=== PATIENT | female | born 1995 | race Caucasian/White ===

== ENCOUNTER 2021-02-26 15:30 | Inpatient (IN) | payer MEDICAID ==
[~2021-02-26] VITALS: Ht 165.1 cm; Wt 150.8 kg
[~2021-02-26 15:30] MED LIST: BUPR-93 PO; METF-960 PO; TRAZ-257 PO
[2021-02-26 21:00] VITALS: BP 148/84
[2021-02-26] MEDS ORDERED: HALOPERIDOL 5 MG TABLET PO PRN (21:00)
[2021-02-26] MEDS ORDERED: ZOLPIDEM TARTRATE 10 MG TABLET PO PRN (21:00)
[2021-02-26] MEDS ORDERED: DEXTROSE 50%-WATER 25 GM/50 ML SYRINGE IVP PRN (21:15)
[2021-02-26] MEDS: OLANZapine 5 MG TABLET PO SCH (21:30)
[2021-02-27 05:51] LABS: BASOPHILS % (AUTO) 0.5 % (0.0-2.0); EOSINOPHILS % (AUTO) 2.3 % (1.0-6.0); HEMATOCRIT 42.8 % (36-46); HEMOGLOBIN 14.6 g/dL (12.0-16.0); LYMPHOCYTES # (AUTO) 3.3 K/uL (1.0-4.8); LYMPHOCYTES % (AUTO) 33.3 % (22.0-44.0); MEAN CORPUSCULAR HEMOGLOBIN 30.2 pg (26.0-34.0); MEAN CORPUSCULAR HGB CONC 34.1 G/dL (31.0-37.0); MEAN CORPUSCULAR VOLUME 88 fL (80-100); MONOCYTES # (AUTO) 0.6 K/uL (0.1-1.0); MONOCYTES % (AUTO) 5.5 % (2.0-9.0); NEUTROPHILS # (AUTO) 5.8 K/uL (1.8-7.7); NEUTROPHILS % (AUTO) 58.4 % (40.0-70.0); PLATELET COUNT (AUTO) 262 K/uL (150-450); RED BLOOD CELL COUNT(AUTO) 4.84 MIL/uL (4.00-5.20); RED CELL DISTRIBUTION WIDTH 13.1 % (11.5-14.5)
[2021-02-27 06:22] LABS: ALANINE AMINOTRANSFERASE 32 U/L (12-78); ALBUMIN 2.9 g/dL (3.4-5.0); ALKALINE PHOSPHATASE 71 U/L (46-116); ANION GAP 8 mmol/L (8-16); ASPARTATE AMINOTRANSFERASE 12 U/L (15-37); BILIRUBIN,TOTAL 0.7 mg/dL (0.1-1.0); CALCIUM, TOTAL 8.8 mg/dL (8.8-10.5); CARBON DIOXIDE 27 mmol/L (22-29); CHLORIDE 101 mmol/L (98-107); CREATININE 0.81 mg/dL (0.60-1.30); GLOMERULAR FILTR. RATE CALC > 60 mL/min (>60); GLUCOSE,RANDOM 250 mg/dL (70-110); POTASSIUM 4.1 mmol/L (3.5-5.1); SODIUM SERUM 136 mmol/L (136-145); TOTAL PROTEIN, SERUM 6.1 g/dL (6.4-8.2); UREA NITROGEN, BLOOD 12 mg/dL (7-18)
[2021-02-27] MEDS: INSULIN LISPRO 100 UNITS/ML SQ PRN ×4 (06:39→21:16)
[2021-02-27 08:32] VITALS: BP 119/55
[2021-02-27] MEDS: OLANZapine 5 MG TABLET PO SCH (08:50)
[2021-02-27] MEDS: BuPROPion HCL XL 150 MG ER TABLET PO SCH (08:50)
[2021-02-27 16:15] VITALS: BP 122/85
[2021-02-27 16:38] LABS: GLUCOMETER DEV NAME(LOC) 3E.I 2; GLUCOSE,POINT OF CARE 282 MG/DL (70-110)
[2021-02-27 17:28] LABS: GLUCOMETER DEV NAME(LOC) 3E.I 2; GLUCOSE,POINT OF CARE 192 MG/DL (70-110)
[2021-02-27] MEDS: ACETAMINOPHEN 325 MG TABLET PO PRN (20:36)
[2021-02-27] MEDS: QUEtiapine FUMARATE 25 MG TABLET PO SCH (20:36)
[2021-02-27 20:54] LABS: GLUCOMETER DEV NAME(LOC) 3E.I 2; GLUCOSE,POINT OF CARE 269 MG/DL (70-110)
[2021-02-28 05:33] LABS: GLUCOMETER DEV NAME(LOC) 3E.I 2; GLUCOSE,POINT OF CARE 253 MG/DL (70-110)
[2021-02-28] MEDS: INSULIN LISPRO 100 UNITS/ML SQ PRN ×4 (06:57→21:07)
[2021-02-28] MEDS: BuPROPion HCL XL 150 MG ER TABLET PO SCH (08:19)
[2021-02-28] MEDS: ACETAMINOPHEN 325 MG TABLET PO PRN (08:32)
[2021-02-28 08:35] VITALS: BP 103/57
[2021-02-28 11:20] LABS: GLUCOMETER DEV NAME(LOC) 3EX.; GLUCOSE,POINT OF CARE 274 MG/DL (70-110)
[2021-02-28] MEDS ORDERED: PETROLATUM,WHITE 28 GM JELLY TP PRN (15:00)
[2021-02-28] MEDS ORDERED: ALBUTEROL SULFATE HFA 90 MCG/PUFF 8 GM INHALER IH PRN (15:00)
[2021-02-28] MEDS ORDERED: CloNIDine HCL 0.1 MG TABLET PO PRN (15:00)
[2021-02-28] MEDS ORDERED: DOCUSATE SODIUM 100 MG CAPSULE PO PRN (15:00)
[2021-02-28] MEDS ORDERED: MAG HYDROX/AL HYDROX/SIMETH ES 30 ML SUSPENSION UDCUP PO PRN (15:00)
[2021-02-28] MEDS ORDERED: GuaiFENesin/D-METHORPHAN [SUGAR-FREE] 200-20MG/10 ML SYRUP UDCUP PO PRN (15:00)
[2021-02-28] MEDS ORDERED: ACETAMINOPHEN 325 MG TABLET PO PRN (15:00)
[2021-02-28] MEDS ORDERED: NICOTINE 14 MG/24 HOUR PATCH TD PRN (15:00)
[2021-02-28] MEDS ORDERED: ONDANSETRON HCL 4 MG TABLET PO PRN (15:00)
[2021-02-28] MEDS ORDERED: LOPERAMIDE HCL 2 MG CAPSULE PO PRN (15:00)
[2021-02-28] MEDS ORDERED: MAGNESIUM HYDROXIDE SUSPENSION 30 ML UDCUP PO PRN (15:00)
[2021-02-28 16:00] VITALS: BP 144/96
[2021-02-28] MEDS: LORazepam 2 MG TABLET PO PRN (16:29)
[2021-02-28 17:17] LABS: GLUCOMETER DEV NAME(LOC) 3E.I 2; GLUCOSE,POINT OF CARE 274 MG/DL (70-110)
[2021-02-28] MEDS: QUEtiapine FUMARATE 25 MG TABLET PO SCH (20:20)
[2021-02-28 21:29] LABS: GLUCOMETER DEV NAME(LOC) 3E.I 2; GLUCOSE,POINT OF CARE 393 MG/DL (70-110)
[2021-03-01 05:37] LABS: GLUCOMETER DEV NAME(LOC) 3E.I 2; GLUCOSE,POINT OF CARE 259 MG/DL (70-110)
[2021-03-01] MEDS: INSULIN LISPRO 100 UNITS/ML SQ PRN ×4 (07:00→21:32)
[2021-03-01] MEDS: BuPROPion HCL XL 150 MG ER TABLET PO SCH (08:23)
[2021-03-01 08:54] VITALS: BP 101/56
[2021-03-01 11:40] LABS: GLUCOMETER DEV NAME(LOC) 3EX.; GLUCOSE,POINT OF CARE 274 MG/DL (70-110)
[2021-03-01] MEDS: ARIPiprazole 5 MG TABLET PO SCH (12:52)
[2021-03-01 16:00] VITALS: BP 130/82
[2021-03-01 17:42] LABS: GLUCOMETER DEV NAME(LOC) 3EX.; GLUCOSE,POINT OF CARE 278 MG/DL (70-110)
[2021-03-01 21:10] LABS: GLUCOMETER DEV NAME(LOC) 3EX.; GLUCOSE,POINT OF CARE 282 MG/DL (70-110)
[2021-03-01] MEDS: QUEtiapine FUMARATE 25 MG TABLET PO SCH (21:31)
[2021-03-02 05:50] LABS: GLUCOMETER DEV NAME(LOC) 3E.I 2; GLUCOSE,POINT OF CARE 300 MG/DL (70-110)
[2021-03-02] MEDS: INSULIN LISPRO 100 UNITS/ML SQ PRN ×4 (06:52→21:04)
[2021-03-02] MEDS: BuPROPion HCL XL 150 MG ER TABLET PO SCH (08:08)
[2021-03-02] MEDS: ARIPiprazole 5 MG TABLET PO SCH (08:08)
[2021-03-02 11:24] LABS: GLUCOMETER DEV NAME(LOC) 3EX.; GLUCOSE,POINT OF CARE 284 MG/DL (70-110)
[2021-03-02] MEDS: IBUPROFEN 400 MG TABLET PO PRN (12:17)
[2021-03-02 16:49] LABS: GLUCOMETER DEV NAME(LOC) 3E.I 2; GLUCOSE,POINT OF CARE 251 MG/DL (70-110)
[2021-03-02 17:00] VITALS: BP 122/79
[2021-03-02] MEDS: QUEtiapine FUMARATE 25 MG TABLET PO SCH (20:19)
[2021-03-02 20:29] LABS: GLUCOMETER DEV NAME(LOC) 3E.I 2; GLUCOSE,POINT OF CARE 327 MG/DL (70-110)
[2021-03-03 05:42] LABS: GLUCOMETER DEV NAME(LOC) 3E.I 2; GLUCOSE,POINT OF CARE 289 MG/DL (70-110)
[2021-03-03] MEDS: INSULIN LISPRO 100 UNITS/ML SQ PRN ×4 (06:43→21:07)
[2021-03-03] MEDS: ARIPiprazole 5 MG TABLET PO SCH (09:31)
[2021-03-03] MEDS: BuPROPion HCL XL 150 MG ER TABLET PO SCH (09:31)
[2021-03-03 11:57] LABS: GLUCOMETER DEV NAME(LOC) 3EX.; GLUCOSE,POINT OF CARE 334 MG/DL (70-110)
[2021-03-03 16:24] VITALS: BP 137/94
[2021-03-03 18:26] LABS: GLUCOMETER DEV NAME(LOC) 3E.I 2; GLUCOSE,POINT OF CARE 285 MG/DL (70-110)
[2021-03-03] MEDS: LORazepam 2 MG TABLET PO PRN (18:56)
[2021-03-03] MEDS: QUEtiapine FUMARATE 25 MG TABLET PO SCH (20:31)
[2021-03-03 21:12] LABS: GLUCOMETER DEV NAME(LOC) 3E.I 2; GLUCOSE,POINT OF CARE 305 MG/DL (70-110)
[2021-03-04 05:36] LABS: GLUCOMETER DEV NAME(LOC) 3E.I 2; GLUCOSE,POINT OF CARE 251 MG/DL (70-110)
[2021-03-04] MEDS: INSULIN LISPRO 100 UNITS/ML SQ PRN ×4 (06:40→21:10)
[2021-03-04] MEDS: ARIPiprazole 5 MG TABLET PO SCH (08:34)
[2021-03-04] MEDS: BuPROPion HCL XL 150 MG ER TABLET PO SCH (08:34)
[2021-03-04] MEDS: IBUPROFEN 400 MG TABLET PO PRN (08:51)
[2021-03-04 09:50] VITALS: BP_SYST 125; BP_SYST 130; BP_DIAS 65; BP_DIAS 73
[2021-03-04 11:30] LABS: GLUCOMETER DEV NAME(LOC) 3E.I 2; GLUCOSE,POINT OF CARE 243 MG/DL (70-110)
[2021-03-04 14:50] LABS: COVID AG,FIA SOURCE NASOPHARYNGEAL
[2021-03-04 16:06] VITALS: BP 138/83
[2021-03-04] MEDS: LORazepam 2 MG TABLET PO PRN ×2 (16:25→21:48)
[2021-03-04 17:04] LABS: GLUCOMETER DEV NAME(LOC) 3EX.; GLUCOSE,POINT OF CARE 255 MG/DL (70-110)
[2021-03-04 17:23] VITALS: BP 128/70
[2021-03-04] MEDS: QUEtiapine FUMARATE 25 MG TABLET PO SCH (20:51)
[2021-03-04 21:09] LABS: GLUCOMETER DEV NAME(LOC) 3EX.; GLUCOSE,POINT OF CARE 286 MG/DL (70-110)
[2021-03-04 21:51] VITALS: BP 155/87
[2021-03-05 05:45] LABS: GLUCOMETER DEV NAME(LOC) 3E.I 2; GLUCOSE,POINT OF CARE 256 MG/DL (70-110)
[2021-03-05] MEDS: INSULIN LISPRO 100 UNITS/ML SQ PRN ×2 (06:35→11:26)
[2021-03-05 08:00] VITALS: BP 144/87
[2021-03-05] MEDS: BuPROPion HCL XL 150 MG ER TABLET PO SCH (08:36)
[2021-03-05] MEDS: ARIPiprazole 5 MG TABLET PO SCH (08:36)
[2021-03-05 11:29] LABS: GLUCOMETER DEV NAME(LOC) 3EX.; GLUCOSE,POINT OF CARE 307 MG/DL (70-110)
[2021-03-05] MEDS ORDERED: ARIP5TAB37 PO (11:52)
[2021-03-05] MEDS ORDERED: QUET25TA PO (11:52)
== END 2021-03-05 13:00 | disposition home or self-care (01) | DRG 751 ==
LOC: 3EI 20:30
PROVIDERS: ADMIT Psychiatry & Neurology Child & Adolescent Psychiatry; ATTEND Psychiatry & Neurology Child & Adolescent Psychiatry
DX: F33.2 Major depressive disorder, recurrent severe without psychotic features (principal); R45.851 Suicidal ideations; Z68.43 Body mass index [BMI] 50.0-59.9, adult; E11.9 Type 2 diabetes mellitus without complications; E66.9 Obesity, unspecified; F12.90 Cannabis use, unspecified, uncomplicated; Z20.822 Contact with and (suspected) exposure to COVID-19; K21.9 Gastro-esophageal reflux disease without esophagitis; Z59.0 Homelessness; Z79.899 Other long term (current) drug therapy; F41.9 Anxiety disorder, unspecified
CPT/HCPCS: 80053; 82962; 85025; 87426

== ENCOUNTER 2021-03-07 11:26 | Inpatient (IN) | payer MEDICAID ==
[~2021-03-07] VITALS: Ht 165.1 cm; Wt 149.8 kg
[~2021-03-07 11:26] MED LIST changes: +ARIP5TAB37 PO; -METF-960 PO; +QUET25TA PO; -TRAZ-257 PO
[2021-03-07 11:42] LABS: GLUCOSE,POINT OF CARE 366 MG/DL (70-110)
[2021-03-07 12:56] LABS: AMPHET/METH SCREEN,URINE NEGATIVE (NEGATIVE); BARBITURATE SCREEN, URINE NEGATIVE (NEGATIVE); BENZODIAZEPINES SCREEN,URINE NEGATIVE (NEGATIVE); CANNABINOID SCREEN,URINE NEGATIVE (NEGATIVE); COCAINE SCREEN,URINE NEGATIVE (NEGATIVE); METHADONE SCREEN, URINE NEGATIVE (NEGATIVE); OPIATE SCREEN,URINE NEGATIVE (NEGATIVE)
[2021-03-07 12:59] LABS: PHENCYCLIDINE SCREEN,URINE NEGATIVE (NEGATIVE)
[2021-03-07 13:03] LABS: ANION GAP 11 mmol/L (8-16); CARBON DIOXIDE 25 mmol/L (22-29); CHLORIDE 101 mmol/L (98-107); CREATININE 0.94 mg/dL (0.60-1.30); GLOMERULAR FILTR. RATE CALC > 60 mL/min (>60); GLUCOSE,RANDOM 369 mg/dL (70-110); POTASSIUM 4.2 mmol/L (3.5-5.1); SODIUM SERUM 137 mmol/L (136-145); UREA NITROGEN, BLOOD 9 mg/dL (7-18)
[2021-03-07 13:14] LABS: ALANINE AMINOTRANSFERASE 44 U/L (12-78); ALBUMIN 3.3 g/dL (3.4-5.0); ALKALINE PHOSPHATASE 81 U/L (46-116); ASPARTATE AMINOTRANSFERASE 17 U/L (15-37); BILIRUBIN,TOTAL 0.7 mg/dL (0.1-1.0); HCG,QUANTITATIVE < 1 mIU/mL (0-6); TOTAL PROTEIN, SERUM 7.3 g/dL (6.4-8.2)
[2021-03-07 13:18] LABS: BASOPHILS % (AUTO) 0.4 % (0.0-2.0); EOSINOPHILS % (AUTO) 1.1 % (1.0-6.0); LYMPHOCYTES # (AUTO) 2.9 K/uL (1.0-4.8); LYMPHOCYTES % (AUTO) 28.8 % (22.0-44.0); MEAN CORPUSCULAR HEMOGLOBIN 29.5 pg (26.0-34.0); MEAN CORPUSCULAR HGB CONC 33.3 G/dL (31.0-37.0); MEAN CORPUSCULAR VOLUME 88 fL (80-100); MONOCYTES # (AUTO) 0.6 K/uL (0.1-1.0); MONOCYTES % (AUTO) 5.6 % (2.0-9.0); NEUTROPHILS # (AUTO) 6.4 K/uL (1.8-7.7); NEUTROPHILS % (AUTO) 64.1 % (40.0-70.0); PLATELET COUNT (AUTO) 351 K/uL (150-450); RED CELL DISTRIBUTION WIDTH 13.4 % (11.5-14.5)
[2021-03-07 14:53] LABS: COVID AG,FIA SOURCE NASAL SWAB
[2021-03-07 17:00] LABS: GLUCOSE,POINT OF CARE 284 MG/DL (70-110)
[2021-03-07] MEDS ORDERED: DEXTROSE 50%-WATER 25 GM/50 ML SYRINGE IVP PRN (18:00)
[2021-03-07] MEDS ORDERED: ZOLPIDEM TARTRATE 10 MG TABLET PO PRN (18:00)
[2021-03-07] MEDS: LORazepam 2 MG TABLET PO PRN (20:11)
[2021-03-07] MEDS: QUEtiapine FUMARATE 25 MG TABLET PO SCH (20:11)
[2021-03-07] MEDS: INSULIN LISPRO 100 UNITS/ML SQ PRN (20:36)
[2021-03-07 20:38] LABS: GLUCOMETER DEV NAME(LOC) 3E.I 2; GLUCOSE,POINT OF CARE 313 MG/DL (70-110)
[2021-03-08 00:21] LABS: APPEARANCE,URINE CLEAR (CLEAR); BILIRUBIN,URINE NEGATIVE (NEGATIVE); GLUCOSE, URINE (UA) >=1000 mg/dL (NEGATIVE); KETONES,URINE NEGATIVE (NEGATIVE); LEUKOCYTE ESTERASE ,URINE NEGATIVE (NEGATIVE); NITRATE,URINE NEGATIVE (NEGATIVE); OCCULT BLOOD,URINE NEGATIVE (NEGATIVE); PH,URINE 5.5 (5.0-8.0); PROTEIN,URINE TRACE (NEGATIVE); UROBILINOGEN,URINE 0.2 mg/dL (<=1.0)
[2021-03-08 00:30] LABS: BACTERIA,URINE None Seen /HPF (None Seen); RBC,URINE 0-2 /HPF (0-2); SQUAMOUS EPITHELIAL CELL,UR Few /LPF (None Seen); WBC,URINE 0-2 /HPF (0-5)
[2021-03-08 06:04] LABS: GLUCOMETER DEV NAME(LOC) 3E.I 2; GLUCOSE,POINT OF CARE 244 MG/DL (70-110)
[2021-03-08 06:22] LABS: BASOPHILS % (AUTO) 0.5 % (0.0-2.0); EOSINOPHILS % (AUTO) 2.6 % (1.0-6.0); HEMATOCRIT 41.5 % (36-46); LYMPHOCYTES # (AUTO) 3.7 K/uL (1.0-4.8); LYMPHOCYTES % (AUTO) 39.3 % (22.0-44.0); MEAN CORPUSCULAR HEMOGLOBIN 29.9 pg (26.0-34.0); MEAN CORPUSCULAR HGB CONC 33.8 G/dL (31.0-37.0); MEAN CORPUSCULAR VOLUME 89 fL (80-100); MONOCYTES # (AUTO) 0.6 K/uL (0.1-1.0); MONOCYTES % (AUTO) 6.7 % (2.0-9.0); NEUTROPHILS # (AUTO) 4.9 K/uL (1.8-7.7); NEUTROPHILS % (AUTO) 50.9 % (40.0-70.0); PLATELET COUNT (AUTO) 300 K/uL (150-450); RED BLOOD CELL COUNT(AUTO) 4.69 MIL/uL (4.00-5.20)
[2021-03-08 06:45] LABS: ALANINE AMINOTRANSFERASE 35 U/L (12-78); ALBUMIN 2.8 g/dL (3.4-5.0); ALKALINE PHOSPHATASE 68 U/L (46-116); ANION GAP 9 mmol/L (8-16); ASPARTATE AMINOTRANSFERASE 14 U/L (15-37); BILIRUBIN,TOTAL 0.9 mg/dL (0.1-1.0); CALCIUM, TOTAL 8.6 mg/dL (8.8-10.5); CARBON DIOXIDE 26 mmol/L (22-29); CHLORIDE 101 mmol/L (98-107); CREATININE 0.72 mg/dL (0.60-1.30); FREE T4 (FREE THYROXINE) 1.27 ng/dL (0.76-1.46); GLOMERULAR FILTR. RATE CALC > 60 mL/min (>60); GLUCOSE,RANDOM 264 mg/dL (70-110); HCG,QUANTITATIVE < 1 mIU/mL (0-6); POTASSIUM 3.8 mmol/L (3.5-5.1); SODIUM SERUM 136 mmol/L (136-145); THYROID STIMULATING HORMONE 1.31 uIU/mL (0.36-3.74); TOTAL PROTEIN, SERUM 6.3 g/dL (6.4-8.2); UREA NITROGEN, BLOOD 13 mg/dL (7-18)
[2021-03-08] MEDS: INSULIN LISPRO 100 UNITS/ML SQ PRN ×4 (07:01→21:39)
[2021-03-08] MEDS: ARIPiprazole 5 MG TABLET PO SCH (08:37)
[2021-03-08] MEDS: BuPROPion HCL XL 150 MG ER TABLET PO SCH (08:37)
[2021-03-08 11:31] LABS: GLUCOMETER DEV NAME(LOC) 3E.I 2; GLUCOSE,POINT OF CARE 276 MG/DL (70-110)
[2021-03-08 17:47] LABS: GLUCOMETER DEV NAME(LOC) 3E.I 2; GLUCOSE,POINT OF CARE 268 MG/DL (70-110)
[2021-03-08 18:00] VITALS: BP 129/79
[2021-03-08 19:40] LABS: GLUCOMETER DEV NAME(LOC) 3E.I 2; GLUCOSE,POINT OF CARE 317 MG/DL (70-110)
[2021-03-08] MEDS: QUEtiapine FUMARATE 25 MG TABLET PO SCH (20:11)
[2021-03-09 05:37] LABS: GLUCOMETER DEV NAME(LOC) 3E.I 2; GLUCOSE,POINT OF CARE 284 MG/DL (70-110)
[2021-03-09 06:25] VITALS: BP 117/79
[2021-03-09] MEDS: INSULIN LISPRO 100 UNITS/ML SQ PRN ×3 (06:34→21:13)
[2021-03-09] MEDS: ARIPiprazole 5 MG TABLET PO SCH (08:55)
[2021-03-09] MEDS: BuPROPion HCL XL 150 MG ER TABLET PO SCH (08:55)
[2021-03-09 11:24] LABS: GLUCOMETER DEV NAME(LOC) 3E.I 2; GLUCOSE,POINT OF CARE 287 MG/DL (70-110)
[2021-03-09 12:36] VITALS: BP 122/78
[2021-03-09] MEDS ORDERED: MAG HYDROX/AL HYDROX/SIMETH ES 30 ML SUSPENSION UDCUP PO PRN (14:45)
[2021-03-09] MEDS ORDERED: PETROLATUM,WHITE 28 GM JELLY TP PRN (14:45)
[2021-03-09] MEDS ORDERED: ACETAMINOPHEN 325 MG TABLET PO PRN (14:45)
[2021-03-09] MEDS ORDERED: ONDANSETRON HCL 4 MG TABLET PO PRN (14:45)
[2021-03-09] MEDS ORDERED: LOPERAMIDE HCL 2 MG CAPSULE PO PRN (14:45)
[2021-03-09] MEDS ORDERED: NICOTINE 14 MG/24 HOUR PATCH TD PRN (14:45)
[2021-03-09] MEDS ORDERED: DOCUSATE SODIUM 100 MG CAPSULE PO PRN (14:45)
[2021-03-09] MEDS ORDERED: CloNIDine HCL 0.1 MG TABLET PO PRN (14:45)
[2021-03-09] MEDS ORDERED: GuaiFENesin/D-METHORPHAN [SUGAR-FREE] 200-20MG/10 ML SYRUP UDCUP PO PRN (14:45)
[2021-03-09] MEDS ORDERED: ALBUTEROL SULFATE HFA 90 MCG/PUFF 8 GM INHALER IH PRN (14:45)
[2021-03-09 14:57] VITALS: BP 119/58
[2021-03-09] MEDS: IBUPROFEN 400 MG TABLET PO PRN (14:57)
[2021-03-09 16:04] VITALS: BP 126/78
[2021-03-09 17:09] LABS: GLUCOMETER DEV NAME(LOC) 3E.I 2; GLUCOSE,POINT OF CARE 254 MG/DL (70-110)
[2021-03-09 18:30] VITALS: BP 142/92
[2021-03-09] MEDS: LORazepam 2 MG TABLET PO PRN (18:36)
[2021-03-09] MEDS: QUEtiapine FUMARATE 25 MG TABLET PO SCH (20:11)
[2021-03-09 21:00] LABS: GLUCOMETER DEV NAME(LOC) 3E.I 2; GLUCOSE,POINT OF CARE 267 MG/DL (70-110)
[2021-03-10 05:25] LABS: GLUCOMETER DEV NAME(LOC) 3E.I 2; GLUCOSE,POINT OF CARE 287 MG/DL (70-110)
[2021-03-10] MEDS: INSULIN LISPRO 100 UNITS/ML SQ PRN ×4 (06:59→21:19)
[2021-03-10 07:35] LABS: BASOPHILS % (AUTO) 0.5 % (0.0-2.0); EOSINOPHILS % (AUTO) 1.8 % (1.0-6.0); HEMATOCRIT 42.1 % (36-46); HEMOGLOBIN 14.5 g/dL (12.0-16.0); LYMPHOCYTES # (AUTO) 3.1 K/uL (1.0-4.8); LYMPHOCYTES % (AUTO) 30.9 % (22.0-44.0); MEAN CORPUSCULAR HEMOGLOBIN 30.3 pg (26.0-34.0); MEAN CORPUSCULAR HGB CONC 34.5 G/dL (31.0-37.0); MEAN CORPUSCULAR VOLUME 88 fL (80-100); MONOCYTES # (AUTO) 0.7 K/uL (0.1-1.0); MONOCYTES % (AUTO) 6.5 % (2.0-9.0); NEUTROPHILS # (AUTO) 6.1 K/uL (1.8-7.7); NEUTROPHILS % (AUTO) 60.3 % (40.0-70.0); PLATELET COUNT (AUTO) 313 K/uL (150-450); RED BLOOD CELL COUNT(AUTO) 4.79 MIL/uL (4.00-5.20); RED CELL DISTRIBUTION WIDTH 12.7 % (11.5-14.5)
[2021-03-10 07:45] LABS: HEMOGLOBIN A1C 10.5 % (3.8-5.6)
[2021-03-10 07:57] LABS: ALANINE AMINOTRANSFERASE 32 U/L (12-78); ALBUMIN 2.9 g/dL (3.4-5.0); ALKALINE PHOSPHATASE 73 U/L (46-116); ANION GAP 9 mmol/L (8-16); ASPARTATE AMINOTRANSFERASE 11 U/L (15-37); BILIRUBIN,TOTAL 0.5 mg/dL (0.1-1.0); CALCIUM, TOTAL 8.7 mg/dL (8.8-10.5); CARBON DIOXIDE 27 mmol/L (22-29); CHLORIDE 100 mmol/L (98-107); CREATININE 0.66 mg/dL (0.60-1.30); GLOMERULAR FILTR. RATE CALC > 60 mL/min (>60); GLUCOSE,RANDOM 268 mg/dL (70-110); POTASSIUM 4.2 mmol/L (3.5-5.1); SODIUM SERUM 136 mmol/L (136-145); THYROID STIMULATING HORMONE 1.92 uIU/mL (0.36-3.74); TOTAL PROTEIN, SERUM 6.5 g/dL (6.4-8.2); UREA NITROGEN, BLOOD 14 mg/dL (7-18)
[2021-03-10] MEDS: ARIPiprazole 5 MG TABLET PO SCH (08:49)
[2021-03-10] MEDS: BuPROPion HCL XL 150 MG ER TABLET PO SCH (08:49)
[2021-03-10] MEDS: LORazepam 2 MG TABLET PO PRN ×3 (11:04→20:42)
[2021-03-10 11:26] LABS: GLUCOMETER DEV NAME(LOC) 3E.I 2; GLUCOSE,POINT OF CARE 287 MG/DL (70-110)
[2021-03-10 16:24] VITALS: BP 128/76
[2021-03-10 16:31] LABS: GLUCOMETER DEV NAME(LOC) 3E.I 2; GLUCOSE,POINT OF CARE 333 MG/DL (70-110)
[2021-03-10 16:43] LABS: CHOL/HDL RATIO 6.5 (3.9-5.7); CHOLESTEROL 169 mg/dL (131-200); HDL CHOLESTEROL 26 mg/dL (40-60); LDL CHOL (CALC.) 111 mg/dL (0-130); TRIGLYCERIDES 161 mg/dL (15-150)
[2021-03-10] MEDS: QUEtiapine FUMARATE 25 MG TABLET PO SCH (20:12)
[2021-03-10 20:14] VITALS: BP 136/88
[2021-03-10 20:57] VITALS: BP 143/71
[2021-03-10] MEDS: IBUPROFEN 400 MG TABLET PO PRN (20:57)
[2021-03-10 21:11] LABS: GLUCOMETER DEV NAME(LOC) 3E.I 2; GLUCOSE,POINT OF CARE 336 MG/DL (70-110)
[2021-03-10 21:14] VITALS: BP 139/89
[2021-03-10 21:30] VITALS: BP 106/57
[2021-03-10 21:57] VITALS: BP 132/96
[2021-03-11 05:30] LABS: GLUCOMETER DEV NAME(LOC) 3E.I 2; GLUCOSE,POINT OF CARE 277 MG/DL (70-110)
[2021-03-11] MEDS: INSULIN LISPRO 100 UNITS/ML SQ PRN ×4 (06:42→21:57)
[2021-03-11] MEDS: ARIPiprazole 5 MG TABLET PO SCH (08:51)
[2021-03-11] MEDS: BuPROPion HCL XL 150 MG ER TABLET PO SCH (08:51)
[2021-03-11 11:23] LABS: GLUCOMETER DEV NAME(LOC) 3E.I 2; GLUCOSE,POINT OF CARE 304 MG/DL (70-110)
[2021-03-11 12:36] VITALS: BP 155/90
[2021-03-11] MEDS: LORazepam 2 MG TABLET PO PRN (14:48)
[2021-03-11] MEDS: HALOPERIDOL 5 MG TABLET PO PRN (14:48)
[2021-03-11 16:04] VITALS: BP 115/75
[2021-03-11 17:08] LABS: GLUCOMETER DEV NAME(LOC) 3E.I 2; GLUCOSE,POINT OF CARE 312 MG/DL (70-110)
[2021-03-11] MEDS: QUEtiapine FUMARATE 25 MG TABLET PO SCH (20:20)
[2021-03-11 21:34] LABS: GLUCOMETER DEV NAME(LOC) 3E.I 2; GLUCOSE,POINT OF CARE 342 MG/DL (70-110)
[2021-03-12 05:31] LABS: GLUCOMETER DEV NAME(LOC) 3E.I 2; GLUCOSE,POINT OF CARE 260 MG/DL (70-110)
[2021-03-12] MEDS: INSULIN LISPRO 100 UNITS/ML SQ PRN ×4 (06:44→20:53)
[2021-03-12] MEDS: BuPROPion HCL XL 150 MG ER TABLET PO SCH (08:06)
[2021-03-12] MEDS: ARIPiprazole 5 MG TABLET PO SCH (08:06)
[2021-03-12 12:06] LABS: GLUCOMETER DEV NAME(LOC) 3E.I 2; GLUCOSE,POINT OF CARE 262 MG/DL (70-110)
[2021-03-12] MEDS: LORazepam 2 MG TABLET PO PRN ×2 (13:20→19:24)
[2021-03-12 16:40] VITALS: BP 110/70
[2021-03-12] MEDS: IBUPROFEN 400 MG TABLET PO PRN (16:56)
[2021-03-12 18:07] LABS: GLUCOMETER DEV NAME(LOC) 3E.C; GLUCOSE,POINT OF CARE 266 MG/DL (70-110)
[2021-03-12] MEDS: QUEtiapine FUMARATE 25 MG TABLET PO SCH (20:07)
[2021-03-12 20:35] LABS: GLUCOMETER DEV NAME(LOC) 3E.C; GLUCOSE,POINT OF CARE 285 MG/DL (70-110)
[2021-03-13] MEDS: INSULIN LISPRO 100 UNITS/ML SQ PRN ×4 (06:42→20:54)
[2021-03-13 06:44] LABS: GLUCOMETER DEV NAME(LOC) 3E.C; GLUCOSE,POINT OF CARE 264 MG/DL (70-110)
[2021-03-13 08:47] VITALS: BP 133/78
[2021-03-13] MEDS: ARIPiprazole 5 MG TABLET PO SCH (09:43)
[2021-03-13] MEDS: HALOPERIDOL 5 MG TABLET PO PRN (09:43)
[2021-03-13] MEDS: LORazepam 2 MG TABLET PO PRN ×2 (09:43→20:42)
[2021-03-13] MEDS: BuPROPion HCL XL 150 MG ER TABLET PO SCH (09:43)
[2021-03-13] MEDS: NALTREXONE HCL 50 MG TABLET PO SCH (11:20)
[2021-03-13 12:06] LABS: GLUCOMETER DEV NAME(LOC) 3E.C; GLUCOSE,POINT OF CARE 293 MG/DL (70-110)
[2021-03-13 16:17] VITALS: BP 138/81
[2021-03-13 18:29] LABS: GLUCOMETER DEV NAME(LOC) 3E.C; GLUCOSE,POINT OF CARE 274 MG/DL (70-110)
[2021-03-13] MEDS: QUEtiapine FUMARATE 25 MG TABLET PO SCH (20:42)
[2021-03-13 20:57] LABS: GLUCOMETER DEV NAME(LOC) 3E.C; GLUCOSE,POINT OF CARE 295 MG/DL (70-110)
[2021-03-14] MEDS: INSULIN LISPRO 100 UNITS/ML SQ PRN ×3 (06:54→22:14)
[2021-03-14 07:10] LABS: GLUCOMETER DEV NAME(LOC) 3E.C; GLUCOSE,POINT OF CARE 232 MG/DL (70-110)
[2021-03-14] MEDS: ARIPiprazole 5 MG TABLET PO SCH (08:31)
[2021-03-14] MEDS: BuPROPion HCL XL 150 MG ER TABLET PO SCH (08:31)
[2021-03-14] MEDS: NALTREXONE HCL 50 MG TABLET PO SCH (08:31)
[2021-03-14 11:16] LABS: GLUCOMETER DEV NAME(LOC) 3E.C; GLUCOSE,POINT OF CARE 223 MG/DL (70-110)
[2021-03-14 16:13] VITALS: BP 132/78
[2021-03-14 16:42] LABS: GLUCOMETER DEV NAME(LOC) 3E.I 2; GLUCOSE,POINT OF CARE 269 MG/DL (70-110)
[2021-03-14] MEDS: LORazepam 2 MG TABLET PO PRN ×2 (16:48→21:02)
[2021-03-14] MEDS: QUEtiapine FUMARATE 25 MG TABLET PO SCH (20:51)
[2021-03-14 21:03] LABS: GLUCOMETER DEV NAME(LOC) 3EX.; GLUCOSE,POINT OF CARE 291 MG/DL (70-110)
[2021-03-14] MEDS ORDERED: HALOPERIDOL LACTATE 5 MG/ML VIAL ONE (21:23)
[2021-03-14] MEDS ORDERED: LORazepam 2 MG/ML VIAL ONE (21:23)
[2021-03-14] MEDS ORDERED: DiphenhydrAMINE HCL 50 MG/ML VIAL ONE (21:24)
[2021-03-14] MEDS ORDERED: DiphenhydrAMINE HCL 50 MG/ML VIAL IM ONE (21:30)
[2021-03-14] MEDS ORDERED: HALOPERIDOL LACTATE 5 MG/ML VIAL IM ONE (21:30)
[2021-03-14] MEDS ORDERED: LORazepam 2 MG/ML VIAL IM ONE (21:30)
[2021-03-15 06:59] LABS: GLUCOMETER DEV NAME(LOC) 3E.C; GLUCOSE,POINT OF CARE 197 MG/DL (70-110)
[2021-03-15] MEDS: INSULIN LISPRO 100 UNITS/ML SQ PRN ×4 (07:04→21:12)
[2021-03-15] MEDS: ARIPiprazole 5 MG TABLET PO SCH (09:28)
[2021-03-15] MEDS: BuPROPion HCL XL 150 MG ER TABLET PO SCH (09:28)
[2021-03-15] MEDS: NALTREXONE HCL 50 MG TABLET PO SCH (09:28)
[2021-03-15 09:51] VITALS: BP 96/53
[2021-03-15 12:59] LABS: GLUCOMETER DEV NAME(LOC) 3E.C; GLUCOSE,POINT OF CARE 250 MG/DL (70-110)
[2021-03-15] MEDS ORDERED: HALOPERIDOL LACTATE 5 MG/ML VIAL ONE ×2 (14:25→14:27)
[2021-03-15] MEDS ORDERED: DiphenhydrAMINE HCL 50 MG/ML VIAL ONE ×2 (14:25→14:27)
[2021-03-15] MEDS ORDERED: HALOPERIDOL LACTATE 5 MG/ML VIAL IM ONE (14:30)
[2021-03-15] MEDS ORDERED: DiphenhydrAMINE HCL 50 MG/ML VIAL IM ONE (14:30)
[2021-03-15] MEDS ORDERED: LORazepam 2 MG/ML VIAL IM ONE (14:30)
[2021-03-15 16:11] VITALS: BP 126/81
[2021-03-15 18:36] LABS: GLUCOMETER DEV NAME(LOC) 3E.C; GLUCOSE,POINT OF CARE 229 MG/DL (70-110)
[2021-03-15] MEDS: QUEtiapine FUMARATE 25 MG TABLET PO SCH (21:07)
[2021-03-15 21:26] LABS: GLUCOMETER DEV NAME(LOC) 3E.C; GLUCOSE,POINT OF CARE 179 MG/DL (70-110)
[2021-03-16] MEDS: INSULIN LISPRO 100 UNITS/ML SQ PRN ×4 (06:58→20:54)
[2021-03-16 07:01] LABS: GLUCOMETER DEV NAME(LOC) 3E.C; GLUCOSE,POINT OF CARE 167 MG/DL (70-110)
[2021-03-16] MEDS: NALTREXONE HCL 50 MG TABLET PO SCH (08:47)
[2021-03-16] MEDS: BuPROPion HCL XL 150 MG ER TABLET PO SCH (08:47)
[2021-03-16] MEDS: ARIPiprazole 5 MG TABLET PO SCH (08:48)
[2021-03-16 11:24] LABS: GLUCOMETER DEV NAME(LOC) 3E.C; GLUCOSE,POINT OF CARE 217 MG/DL (70-110)
[2021-03-16 16:35] VITALS: BP 112/60
[2021-03-16 16:59] LABS: GLUCOMETER DEV NAME(LOC) 3E.C; GLUCOSE,POINT OF CARE 246 MG/DL (70-110)
[2021-03-16] MEDS: LORazepam 2 MG TABLET PO PRN (19:10)
[2021-03-16] MEDS: HALOPERIDOL 5 MG TABLET PO PRN (19:10)
[2021-03-16] MEDS: QUEtiapine FUMARATE 25 MG TABLET PO SCH (20:40)
[2021-03-16 21:10] LABS: GLUCOMETER DEV NAME(LOC) 3E.C; GLUCOSE,POINT OF CARE 228 MG/DL (70-110)
[2021-03-17] MEDS: INSULIN LISPRO 100 UNITS/ML SQ PRN ×3 (06:46→12:06)
[2021-03-17 06:56] LABS: GLUCOMETER DEV NAME(LOC) 3E.C; GLUCOSE,POINT OF CARE 189 MG/DL (70-110)
[2021-03-17 08:00] VITALS: BP 129/80
[2021-03-17] MEDS: BuPROPion HCL XL 150 MG ER TABLET PO SCH (10:15)
[2021-03-17] MEDS: ARIPiprazole 5 MG TABLET PO SCH (10:15)
[2021-03-17] MEDS: NALTREXONE HCL 50 MG TABLET PO SCH (10:15)
[2021-03-17] MEDS ORDERED: NALT50TA6 PO (11:35)
[2021-03-17 11:51] LABS: GLUCOMETER DEV NAME(LOC) 3E.C; GLUCOSE,POINT OF CARE 260 MG/DL (70-110)
== END 2021-03-17 13:25 | disposition home or self-care (01) | DRG 751 ==
LOC: EMS 11:31 → 3EI 14:56 → UNDOADMIN 14:56 → B2S 14:56 → 3EI 03-10 19:00 → 3EC 03-12 16:00 → 3EI 03-14 14:00 → 3EC 03-14 21:15
PROVIDERS: ADMIT Psychiatry & Neurology Child & Adolescent Psychiatry; ATTEND Psychiatry & Neurology Child & Adolescent Psychiatry
DX: F33.2 Major depressive disorder, recurrent severe without psychotic features (principal); R45.851 Suicidal ideations; E11.9 Type 2 diabetes mellitus without complications; Z87.442 Personal history of urinary calculi; E66.9 Obesity, unspecified; Z20.822 Contact with and (suspected) exposure to COVID-19
CPT/HCPCS: 80053; 80061; 81001; 82962; 83036; 84436; 84439; 84443; 84484; 84702; 85025; 87081; 87426; 93005; 99285; G0480; J1200; J1630; J2060

== ENCOUNTER 2023-03-26 12:47 | Inpatient (IN) | payer MEDICAID ==
[~2023-03-26] VITALS: Ht 170.2 cm; Wt 135.6 kg
[~2023-03-26 12:47] MED LIST changes: +NALT50TA6 PO
[2023-03-28 01:42] VITALS: BP 135/87
[2023-03-28] MEDS ORDERED: ZOLPIDEM TARTRATE 10 MG TABLET PO PRN (02:15)
[2023-03-28] MEDS ORDERED: LORazepam 2 MG TABLET PO PRN (02:15)
[2023-03-28] MEDS ORDERED: HALOPERIDOL 5 MG TABLET PO PRN (02:15)
[2023-03-28] MEDS ORDERED: ONDANSETRON HCL 4 MG TABLET PO ONE (06:30)
[2023-03-28] MEDS ORDERED: ONDANSETRON HCL 4 MG TABLET PO PRN (06:45)
[2023-03-28 07:17] LABS: GLUCOMETER DEV NAME(LOC) 3E.C; GLUCOSE,POINT OF CARE 184 MG/DL (70-110)
[2023-03-28 07:21] LABS: BASOPHILS % (AUTO) 0.7 % (0.0-2.0); HEMATOCRIT 43.9 % (36-46); HEMOGLOBIN 15.1 g/dL (12.0-16.0); LYMPHOCYTES # (AUTO) 4.7 K/uL (1.0-4.8); LYMPHOCYTES % (AUTO) 39.7 % (22.0-44.0); MEAN CORPUSCULAR HEMOGLOBIN 30.5 pg (26.0-34.0); MEAN CORPUSCULAR HGB CONC 34.3 G/dL (31.0-37.0); MEAN CORPUSCULAR VOLUME 89 fL (80-100); MONOCYTES # (AUTO) 0.8 K/uL (0.1-1.0); MONOCYTES % (AUTO) 6.6 % (2.0-9.0); PLATELET COUNT (AUTO) 309 K/uL (150-450); RED BLOOD CELL COUNT(AUTO) 4.93 MIL/uL (4.00-5.20); RED CELL DISTRIBUTION WIDTH 12.7 % (11.5-14.5)
[2023-03-28] MEDS ORDERED: MetFORMIN HCL 500 MG ER TABLET PO SCH (07:30)
[2023-03-28 07:37] LABS: ALANINE AMINOTRANSFERASE 37 U/L (12-78); ALKALINE PHOSPHATASE 81 U/L (46-116); ANION GAP 6 mmol/L (8-16); ASPARTATE AMINOTRANSFERASE 16 U/L (15-37); BILIRUBIN,TOTAL 0.8 mg/dL (0.1-1.0); CALCIUM, TOTAL 8.9 mg/dL (8.8-10.5); CARBON DIOXIDE 29 mmol/L (22-29); CHLORIDE 104 mmol/L (98-107); CREATININE 0.95 mg/dL (0.60-1.30); GLOMERULAR FILTR. RATE CALC > 60 mL/min (>60); GLUCOSE,RANDOM 200 mg/dL (70-110); POTASSIUM 4.4 mmol/L (3.5-5.1); SODIUM SERUM 139 mmol/L (136-145); TOTAL PROTEIN, SERUM 7.1 g/dL (6.4-8.2)
[2023-03-28 07:39] LABS: HEMOGLOBIN A1C 9.5 % (3.8-5.6)
[2023-03-28] MEDS: GABAPENTIN 300 MG CAPSULE PO SCH ×3 (08:36→17:54)
[2023-03-28 11:46] LABS: GLUCOMETER DEV NAME(LOC) 3E.C; GLUCOSE,POINT OF CARE 252 MG/DL (70-110)
[2023-03-28 16:11] LABS: GLUCOMETER DEV NAME(LOC) 3E.C; GLUCOSE,POINT OF CARE 218 MG/DL (70-110)
[2023-03-28] MEDS: GlipiZIDE 5 MG TABLET PO SCH (17:56)
[2023-03-28] MEDS ORDERED: QUEtiapine FUMARATE 25 MG TABLET PO SCH (21:00)
[2023-03-28 23:41] LABS: GLUCOMETER DEV NAME(LOC) 3E.C; GLUCOSE,POINT OF CARE 102 MG/DL (70-110)
[2023-03-29] MEDS: GlipiZIDE 5 MG TABLET PO SCH ×2 (06:56→16:31)
[2023-03-29 07:06] LABS: GLUCOMETER DEV NAME(LOC) 3E.C; GLUCOSE,POINT OF CARE 155 MG/DL (70-110)
[2023-03-29] MEDS: GABAPENTIN 300 MG CAPSULE PO SCH ×4 (08:39→16:32)
[2023-03-29] MEDS: TOPIRAMATE 100 MG TABLET PO SCH (08:39)
[2023-03-29] MEDS: BuPROPion HCL XL 150 MG ER TABLET PO SCH (08:40)
[2023-03-29] MEDS: DULoxetine HCL 60 MG CAPSULE PO SCH (08:40)
[2023-03-29] MEDS ORDERED: NALTREXONE HCL 50 MG TABLET PO SCH (09:00)
[2023-03-29] MEDS ORDERED: ARIPiprazole 5 MG TABLET PO SCH (09:00)
[2023-03-29 11:35] LABS: GLUCOMETER DEV NAME(LOC) 3E.C; GLUCOSE,POINT OF CARE 204 MG/DL (70-110)
[2023-03-29 16:56] LABS: GLUCOMETER DEV NAME(LOC) 3E.C; GLUCOSE,POINT OF CARE 258 MG/DL (70-110)
[2023-03-29 20:34] VITALS: BP 132/76
[2023-03-29 21:31] LABS: GLUCOMETER DEV NAME(LOC) 3E.C; GLUCOSE,POINT OF CARE 283 MG/DL (70-110)
[2023-03-30 05:51] LABS: GLUCOMETER DEV NAME(LOC) 3E.C; GLUCOSE,POINT OF CARE 167 MG/DL (70-110)
[2023-03-30] MEDS: GlipiZIDE 5 MG TABLET PO SCH ×2 (06:01→16:42)
[2023-03-30] MEDS: GABAPENTIN 300 MG CAPSULE PO SCH ×3 (09:00→16:46)
[2023-03-30] MEDS: DULoxetine HCL 60 MG CAPSULE PO SCH (10:08)
[2023-03-30] MEDS: BuPROPion HCL XL 150 MG ER TABLET PO SCH (10:08)
[2023-03-30] MEDS: TOPIRAMATE 100 MG TABLET PO SCH (10:09)
[2023-03-30 12:11] LABS: GLUCOMETER DEV NAME(LOC) 3E.C; GLUCOSE,POINT OF CARE 114 MG/DL (70-110)
[2023-03-30] MEDS ORDERED: GLIP2.5T2 PO (13:02)
[2023-03-30] MEDS ORDERED: TOPI100T37 PO (14:35)
[2023-03-30] MEDS ORDERED: GLIP5TAB11 PO (14:35)
[2023-03-30] MEDS ORDERED: GABA-1181 PO (14:35)
[2023-03-30] MEDS ORDERED: BUPR-49 PO (14:35)
[2023-03-30] MEDS ORDERED: DULO-113 PO (14:35)
== END 2023-03-30 19:00 | disposition home or self-care (01) | DRG 751 ==
LOC: 3EI 03-28 00:30
PROVIDERS: ADMIT Psychiatry & Neurology Child & Adolescent Psychiatry; ATTEND Psychiatry & Neurology Child & Adolescent Psychiatry
DX: F33.2 Major depressive disorder, recurrent severe without psychotic features (principal); E11.9 Type 2 diabetes mellitus without complications; D72.829 Elevated white blood cell count, unspecified; E66.9 Obesity, unspecified; F60.3 Borderline personality disorder; F41.9 Anxiety disorder, unspecified; Z79.899 Other long term (current) drug therapy; Z68.42 Body mass index [BMI] 45.0-49.9, adult
CPT/HCPCS: 80053; 82962; 83036; 85025; 87081